=== PATIENT | female | born 1985 | race Caucasian/White ===

== ENCOUNTER 2018-06-13 11:00 | Emergency (ER) | payer OTHER ==
--- NOTE | 2018-06-13 11:56 | ED ---
Abdominal Pain HPI - General Chief Complaint: Abdominal Pain Stated Complaint: LLQ PAIN Time Seen by Provider: 06/13/18 11:39 Source: patient Mode of arrival: ambulatory Limitations: no limitations - History of Present Illness Initial Comments: This a 32-year-old female who denies past medical history with last menstrual period June 06 who presents today for chief complaint of im worried im . Patient states that 5 days ago she felt a pressure sensation in her abdomen, she denies that this was pain but stated it "felt like kicking from a baby". Patient states that she has been smoking and drinking wine here and there was worried she is . She brushed off the symptoms. 3 days ago she noticed her jeans were tighter than normal. She stated that she had periods early on during her last . She did admit to some nausea in the mornings for the past few days, however no vomiting. She stated that a month ago she noticed bilateral breast tenderness, however she brushed off these symptoms as well patient was sore from menstruation. Patient adamantly denies any fever chills, abdominal pain/pelvic pain, urgency urgency, dysuria, vaginal odor, vaginal irritation, vaginal bleeding aside from menstruation, back pain, chest pain, shortness of breath, dizziness, constipation, diarrhea, hematochezia, melena. Patient's vital signs stable upon arrival. - Related Data Home Medications Medication Instructions Recorded Confirmed No Known Home Medications 06/13/18 06/13/18 Allergies Allergy/AdvReac Type Severity Reaction Status Date / Time No Known Allergies Allergy Verified 06/13/18 12:00 Review of Systems ROS Statement: Those systems with pertinent positive or pertinent negative responses have been documented in the HPI. ROS Other: All systems not noted in ROS Statement are negative. Constitutional: Denies: fever, chills, night sweats Respiratory: Denies: cough, dyspnea, wheezes, hemoptysis, stridor Cardiovascular: Denies: chest pain, palpitations Gastrointestinal: Reports: as per HPI, nausea. Denies: abdominal pain, vomiting , diarrhea, constipation, hematemesis, melena, hematochezia Genitourinary: Denies: urgency, dysuria, frequency, hematuria, discharge, abnormal menses, dyspareunia Musculoskeletal: Denies: back pain Skin: Denies: rash, lesions Neurological: Denies: headache, weakness, numbness, paresthesias, confusion Psychiatric: Reports: anxiety (pt states that she has chronic anxiety, no new symptoms) Past Medical History Past Medical History: No Reported History History of Any Multi-Drug Resistant Organisms: None Reported Past Surgical History: Section Past Psychological History: Anxiety, Depression Smoking Status: Current every day smoker Past Alcohol Use History: Occasional Past Drug Use History: None Reported General Exam - General Exam Comments Initial Comments: General: The patient is awake and alert, in no distress, and does not appear acutely ill. Eye: Pupils are equal, round and reactive to light, extra-ocular movements are intact. No nystagmus. There is normal conjunctiva bilaterally. No signs of icterus. Cardiovascular: There is a regular rate and rhythm. No murmur, rub or gallop is appreciated. Respiratory: Lungs are clear to auscultation, respirations are non-labored, breath sounds are equal. No wheezes, stridor, rales, or rhonchi. Gastrointestinal: Soft, non-distended, non-tender abdomen without masses or organomegaly noted. No pain to deep or light palpation over the abdomen/pelvic region including ovaries b/l, uterus, bladder margin, or 4 quadrants/epigastric region. There is no rebound or guarding present. No CVA tenderness. Bowel sounds are unremarkable. No signs of rigidity or peritoneal irritation. Musculoskeletal: Normal ROM, no tenderness. Strength 5/5. Sensation intact. Pulses equal bilaterally 2+. Neurological: A&O x 3. CN II-XII intact, There are no obvious motor or sensory deficits. Coordination appears grossly intact. Speech is normal. Skin: Skin is warm and dry and no rashes or lesions are noted. Psychiatric: Cooperative, appropriate mood & affect, normal judgment. Limitations: no limitations Course Vital Signs 06/13/18 06/13/18 11:30 13:09 Temperature 98.2 F 98.3 F Pulse Rate 82 60 Respiratory 18 16 Rate Blood Pressure 116/82 105/60 O2 Sat by Pulse 100 97 Oximetry Medical Decision Making - Medical Decision Making Because pt stated she took a negative home test, a serum qual HCG was obtained (-). At this time given pt pt has no abdominal pain, changes in defecation or urination. There is no pulsatile mass in the abdomen upon physical examination. VS WNL. I feel the patient is stable for discharge. Further evaluation was discussed with patient, at this time she feels more comfortable seeing primary care physician for follow-up. Patient is instructed to return to emergency department if there was any abdominal pain, change or worsening symptoms, she verbalized agreement. Her main concern was to be evaluated for . Case is discussed in detail Dr. lA. Patient was discharged in stable condition. With follow-up with Dr. Britton. - Lab Data Lab Results 06/13/18 Range/Units 12:08 HCG, Qual Not Detected Disposition Clinical Impression: Normal exam, Negative test Disposition: HOME SELF-CARE Condition: Good Instructions: How to Avoid and Decrease Problems with Gas (DC) Additional Instructions: Please follow-up with family doctor in the next 2 days of symptoms have not improved. Please return to emergency room if the symptoms increase or worsen or for any other concerns. Is patient prescribed a controlled substance at d/c from ED?: No Referrals: None,Stated [Primary Care Provider] - 1-2 days Zenobia Britton MD [STAFF PHYSICIAN] - 1-2 days Time of Disposition: 12:45
[2018-06-13 13:10] VITALS: BP 105/60; PULSE 60; RESP 16; TEMP 98.3
== END 2018-06-13 13:09 | disposition home or self-care (01) ==
LOC: EC 11:00
DX: Z32.02 Encounter for pregnancy test, result negative (principal); F17.200 Nicotine dependence, unspecified, uncomplicated
CPT/HCPCS: 36415; 84703; 99283

== ENCOUNTER → 2019-01-10 | Outpatient (CLI) | payer OTHER ==
--- NOTE | 2019-01-12 18:11 | US ---
EXAMINATION TYPE: Transabdominal DATE OF EXAM: 01/10/2019 4:51 PM COMPARISON: NONE CLINICAL HISTORY: Z36 Confirm dates. Confirm dates, 4, para 3 EXAM PERFORMED: Transabdominal (TA) EXAM MEASUREMENTS: GESTATIONAL AGE / DATING Physician Established: (10 weeks/5 days) EDC: 08/03/2019 Dates by LMP: (10 weeks/5 days) EDC: 08/03/2019 Dates by First Scan: This is 1st scan Dates by Current Scan for: (10 weeks/2 days) EDC: 08/06/2019 MATERNAL ANATOMY Uterus: 10.8 x 5.7 x 7.3cm Right Ovary: 3.6 x 1.9 x 2.7cm Left Ovary: 2.6 x 1.6 x 1.8cm Post CDS / Adnexa: wnl Presence of free fluid: no Presence of corpus luteal cyst: right ovary: 1.9 x 1.7 x 1.6cm Presence of subchorionic bleed: no GESTATION / SURVEY CRL: 3.4cm (10 weeks/2 days) Yolk Sac (normal less than 6mm): 4.8mm Heart Rate: 168 bpm Rhythm: Normal IUP: Viable IUP Nuchal Translucency 10-14wks (normal less than 3mm): 1.4mm Date of LMP: 10/27/2018 Beta HcG (if available): Not available at time of exam Viable single IUP measuring 10 weeks 2 days with heart rate of 168bpm and an estimated delivery date of 08/06/2019. IMPRESSION: Single intrauterine gestation estimated at 10 weeks 2 days gestation based on the current ultrasound crown-rump length. Cardiac activity measures 168 bpm.
== END ==
LOC: RADUSWWP 16:27
PROVIDERS: ATTEND Obstetrics & Gynecology
DX: Z36.9 Encounter for antenatal screening, unspecified (principal); Z3A.10 10 weeks gestation of pregnancy
CPT/HCPCS: 76801; 76813

== ENCOUNTER 2019-07-25 16:03 | Outpatient (CLI) | payer OTHER ==
--- NOTE | 2019-07-28 09:19 | US ---
EXAMINATION TYPE: US OB >= 14 wk fetus DATE OF EXAM: 07/25/2019 COMPARISON: None CLINICAL HISTORY: LEILANI EFW TECHNIQUE: Transabdominal (TA) GESTATIONAL AGE / DATING Physician Established: (38 weeks/5 days) EDC: 08/03/2019 Dates by LMP: (38 weeks/5 days) EDC: 08/03/2019 Dates by First Scan: (10 weeks/2 days) EDC: 08/06/2019 Dates by Current Scan: 35 weeks/6 days) EDC: 08/23/2019 SURVEY IUP: Single PLACENTA: Anterior PREVIA: No Previa LEILANI: 11.5 cm Normal CERVICAL LENGTH (transabdominal: norm > 3.0cm): 3.3 cm BIOMETRY PRESENTATION: Vertex LIE: Longitudinal BPD: 8.64 cm 34 weeks / 6 days HC: 31.05 cm 34 weeks / 5 days AC: 32.21 cm 36 weeks / 1 days FL: 7.28 cm 37 weeks / 2 days ESTIMATED WEIGHT IN GRAMS: 2854 grams ESTIMATED WEIGHT IN LBS/OZ: 65 lbs. oz. WEIGHT PERCENTAGE BASED ON ESTABLISHED DATES: 11% HC/AC: .96cm Normal FL/AC: 23% Normal HEART RATE: 140 bpm RHYTHM: Normal IMPRESSION: IMPRESSION: The weight is 11th percentile compared to old exam of 01/10/2019 that raises the pos sibility of some degree of IUGR. Normal amniotic fluid index. Estimated weight is 2854 g.
== END 2019-07-25 16:45 | disposition home or self-care (01) ==
LOC: FBPOP 16:03
PROVIDERS: ATTEND Obstetrics & Gynecology
DX: O36.5930 Maternal care for other known or suspected poor fetal growth, third trimester, not applicable or unspecified (principal); Z3A.35 35 weeks gestation of pregnancy
CPT/HCPCS: 59025; 76805

== ENCOUNTER 2019-08-11 06:00 | Inpatient (IN) | payer OTHER ==
[2019-08-11] MEDS ORDERED: METHYLERGONOVINE 0.2 MG/ML 1 ML AMP IM PRN (06:51)
[2019-08-11] MEDS ORDERED: OXYTOCIN 10 UNIT/ML 1 ML VIAL IM PRN (06:51)
[2019-08-11] MEDS ORDERED: TERBUTALINE 1 MG/ML VIAL SQ PRN (06:51)
[2019-08-11] MEDS ORDERED: LIDOCAINE 0.5% (PF) 5 MG/ML (50 ML SDV) SQ PRN (06:51)
[2019-08-11] MEDS ORDERED: CARBOPROST TROMETHAMINE 250 MCG/ML 1 ML AMP IM PRN (06:51)
[2019-08-11] MEDS ORDERED: OXYTOCIN 30 UNITS/500 ML NS 30 UNIT in SALINE 1 500ML.BAG IV SCH (07:00)
[2019-08-11] MEDS: LACTATED RINGERS 1,000 ML IV SCH ×2 (07:06→21:32)
[2019-08-11 07:28] VITALS: BMI 23.6
[2019-08-11 07:42] LABS: Basophils % (A) 0 %; Eosinophils % (A) 1 %; HGB 11.8 gm/dL (11.4-16.0); Lymphocytes % (A) 13 %; MCH 30.9 pg (25.0-35.0); MCHC 32.7 g/dL (31.0-37.0); MCV 94.5 fL (80.0-100.0); Mean Platelet Volume 7.3; Monocytes # (A) 0.3 k/uL (0-1.0); Monocytes % (A) 4 %; Neutrophils # (A) 5.7 k/uL (1.3-7.7); Neutrophils % (A) 80 %; Platelet Count 179 k/uL (150-450); RDW 13.2 % (11.5-15.5); WBC 7.1 k/uL (3.8-10.6)
[2019-08-11] MEDS ORDERED: BUTORPHANOL 1 MG/ML 1 ML VIAL IV PRN (08:27)
[2019-08-11] MEDS ORDERED: ZOLPIDEM 5 MG TAB PO PRN (13:54)
[2019-08-11] MEDS ORDERED: diphenhydrAMINE 50 MG/ML 1 ML VIAL IVP PRN ×2 (13:54)
[2019-08-11] MEDS ORDERED: diphenhydrAMINE 50 MG CAP PO PRN (13:54)
[2019-08-11] MEDS ORDERED: WITCH HAZEL 1 EACH MED..PAD TOPICAL PRN (13:54)
[2019-08-11] MEDS ORDERED: BENZOCAINE/MENTHOL SPRAY 1 GM/SPRAY AEROSOL TOPICAL PRN (13:54)
[2019-08-11] MEDS ORDERED: LANOLIN CREAM 5 GM TUBE TOPICAL PRN (13:54)
[2019-08-11] MEDS ORDERED: ACETAMINOPHEN TAB 325 MG TAB PO PRN (13:54)
[2019-08-11] MEDS ORDERED: HYDROCORTISONE 2.5% RECTAL CREAM 30 GM TUBE RECTAL PRN (13:54)
[2019-08-11] MEDS ORDERED: IBUPROFEN 600 MG TAB PO PRN (13:54)
[2019-08-11] MEDS ORDERED: SIMETHICONE 80 MG CHEWABLE PO PRN (13:54)
[2019-08-11] MEDS ORDERED: diphenhydrAMINE 25 MG CAP PO PRN (13:54)
[2019-08-11] MEDS ORDERED: OXYTOCIN 20 UNITS/1000 ML NS 1,000 ML IV SCH (14:00)
--- NOTE | 2019-08-11 17:47 | P.HPOB ---
History of Present Illness H&P Date: 08/11/19 Chief Complaint: Intrauterine at term: Induction of labor Patient is a 34-year-old with twins who is 41 weeks 1 day gestation who arrives for vaginal after section induction of labor. Risk of trial of labor following section were discussed with patient in detail and all questions were answered for her prior to proceeding with the induction. She is 41 weeks gestation and was offered induction prior to this on multiple occasions but declined. Her course otherwise was unremarkable and she is feeling well at this time. We'll plan Pitocin augmentation of labor with artificial rupture membranes been performed and clear fluid noted. She is dilated to 3 cm to 3 cm 80% effaced and -2 station. It is noted that she feels her 1 hour Glucola screen but passed her 3 her Glucola screen as noted weight and NSTs and amniotic fluid index have been normal over the last 2 weeks as we've been monitoring her very closely. All questions were answered for her prior to the initiation of the induction and we anticipate a vaginal delivery. Past Medical History Past Medical History: No Reported History History of Any Multi-Drug Resistant Organisms: None Reported Past Surgical History: Section Additional Past Surgical History / Comment(s): 2014 Past Anesthesia/Blood Transfusion Reactions: No Reported Reaction Past Psychological History: Anxiety, Depression Smoking Status: Former smoker Past Alcohol Use History: Occasional Past Drug Use History: None Reported - Past Family History Father Family Medical History: No Reported History Medications and Allergies Home Medications Medication Instructions Recorded Confirmed Type Pnv No.95/Ferrous Fum/Folic AC 1 tab PO DAILY 07/25/19 08/11/19 History [ Multivitamin Tablet] Allergies Allergy/AdvReac Type Severity Reaction Status Date / Time No Known Allergies Allergy Verified 08/11/19 06:48 Exam Osteopathic Statement: *. No significant issues noted on an osteopathic structural exam other than those noted in the History and Physical/Consult. Vital Signs Temp Pulse Resp BP 08/11/19 15:45 93 17 135/70 08/11/19 15:15 59 L 16 113/72 08/11/19 14:43 75 16 121/72 08/11/19 14:30 75 17 113/71 08/11/19 14:12 67 17 112/59 08/11/19 13:58 79 16 129/75 08/11/19 13:54 98.3 F 73 17 135/61 08/11/19 07:22 17 Intake and Output 08/11/19 08/11/19 08/11/19 06:59 14:59 22:59 Intake Total 600 Balance 600 Intake: Oral 600 Other: # Voids 1 Weight 62.596 kg - OBG Physical Exam Breast: both: normal (no masses) Abdomen: bowel sounds normal, no diffuse tenderness, no bruit present, no guarding noted, no hepatomegaly, no splenomegaly, no mass Vulva: both: normal Vagina: normal moisture, no discharge Cervix: no lesion, no discharge Uterus: normal size, normal contour Adnexa: both: normal Anus/Rectum: normal perianal skin, no rectal mass, no hemorrhoids, heme negative Results Result Diagrams: 08/11/19 07:14
--- NOTE | 2019-08-11 17:48 | P.PROBDLV ---
Vaginal Delivery Note - . Vaginal Delivery Note: Patient progressed to complete and pushing with spontaneous vaginal delivery of a viable female over a first degree perineal laceration. Following delivery of the head a nuchal cord 1 was noted and easily reduced. Once this was accomplished anterior and posterior shoulders were delivered with gentle downward and upward traction followed by the remainder of the baby. Once this was accomplished baby was mouth and nares bulb suctioned and placed on mother's abdomen where the umbilical cord was allowed to pulsate for 30 seconds prior to clamping and cutting. Once this was accomplished nursery personnel was present and assumed care. Placenta was then delivered intact without difficulty and Pitocin was added to the IV. scores were 9 and 9 at one and 5 minutes respectively and the weight was 7 lbs. 0 oz. A first repair immediately laceration was then repaired with 3-0 Vicryl following 1% Xylocaine for analgesia. Both mother and baby are currently stable following delivery.
[2019-08-11 21:19] VITALS: RESP 16
[2019-08-11] MEDS: SENNOSIDES-DOCUSATE SODIUM 1 EACH TAB PO SCH (21:32)
--- NOTE | 2019-08-12 07:33 | P.DS ---
Providers Date of admission: 08/11/19 06:30 Expected date of discharge: 08/12/19 Attending physician: Alexis Galindo Primary care physician: Stated None Hospital Course: Patient is doing very well day 1. She is involuting, voiding and tolerating her diet. She voices no complaints and is requesting discharge to home later today. Vital signs are stable and afebrile. Heart regular, lungs clear, extremities without pain. Abdomen soft is firm and lochia is reported light. Assessment day 1. Plan discharged home follow up with me in 6 weeks. Discharge instructions are otherwise thoroughly reviewed and all quest ions were answered for her prior to her discharge. Patient Condition at Discharge: Good Plan - Discharge Summary New Discharge Prescriptions: No Action Pnv No.95/Ferrous Fum/Folic AC [ Multivitamin Tablet] 1 tab PO DAILY Discharge Medication List Pnv No.95/Ferrous Fum/Folic AC [ Multivitamin Tablet] 1 tab PO DAILY 07/25/19 [History] Follow up Appointment(s)/Referral(s): Alexis Galindo DO [Doctor of Osteopathic Medicine] - 1 Week Activity/Diet/Wound Care/Special Instructions: No heavy lifting, limit stairs and driving, and pelvic rest. If any high temperatures, heavy bleeding, or severe pain call my office Discharge Disposition: HOME SELF-CARE
[2019-08-12 07:57] LABS: Basophils % (A) 0 %; Eosinophils # (A) 0.1 k/uL (0-0.7); Eosinophils % (A) 1 %; HCT 34.2 % (34.0-46.0); HGB 11.1 gm/dL (11.4-16.0); Lymphocytes # (A) 1.1 k/uL (1.0-4.8); Lymphocytes % (A) 11 %; MCH 31.1 pg (25.0-35.0); MCHC 32.5 g/dL (31.0-37.0); MCV 95.6 fL (80.0-100.0); Mean Platelet Volume 7.3; Monocytes # (A) 0.3 k/uL (0-1.0); Monocytes % (A) 3 %; Neutrophils # (A) 8.6 k/uL (1.3-7.7); Neutrophils % (A) 83 %; Platelet Count 188 k/uL (150-450); RBC 3.58 m/uL (3.80-5.40); RDW 13.3 % (11.5-15.5); WBC 10.3 k/uL (3.8-10.6)
[2019-08-12 09:31] VITALS: BP 99/61; PULSE 67; TEMP 98.5
[2019-08-12] MEDS: SENNOSIDES-DOCUSATE SODIUM 1 EACH TAB PO SCH (09:32)
== END 2019-08-12 14:30 | disposition home or self-care (01) | DRG 807 ==
LOC: 4FBP 06:30
PROVIDERS: ADMIT Obstetrics & Gynecology; ATTEND Obstetrics & Gynecology
PROC: 10E0XZZ Delivery of Products of Conception, External Approach (ICD-10-PCS; principal; 2019-08-11)
PROC: 0HQ9XZZ Repair Perineum Skin, External Approach (ICD-10-PCS; principal; 2019-08-11)
DX: O34.219 Maternal care for unspecified type scar from previous cesarean delivery (principal); Z37.0 Single live birth; O99.344 Other mental disorders complicating childbirth; F41.9 Anxiety disorder, unspecified; F32.9 Major depressive disorder, single episode, unspecified; O70.0 First degree perineal laceration during delivery; Z3A.41 41 weeks gestation of pregnancy; Z87.891 Personal history of nicotine dependence
CPT/HCPCS: 85025; 86850; 86900; 86901

== ENCOUNTER → 2025-01-26 | Outpatient (CLI) | payer OTHER ==
--- NOTE | 2025-01-26 15:02 | US ---
EXAMINATION TYPE: US thyroid st tissue head/neck DATE OF EXAM: 01/26/2025 COMPARISON: NONE CLINICAL INDICATION: Female, 39 years old with history of E04.9 NONTOXIC GOITER, UNSPECIFIED; Pt stat es her thyroid is swollen and has been choking on foods TECHNIQUE: Grayscale and color Doppler imaging of the thyroid gland. FINDINGS: GLAND SIZE: Right Lobe: 5.0 x 1.8 x 1.7 cm Overall Parenchyma: heterogeneous Left Lobe: 5.0 x 1.8 x 1.3 cm Overall Parenchyma: heterogeneous Isthmus Thickness: 0.2 cm NODULES RIGHT: # of nodules measured on right: 0 LEFT: # of nodules measured on left: 0 ISTHMUS: # of nodules measured in the isthmus: 0 Bilateral neck scanned, no evidence of lymphadenopathy. IMPRESSION: Diffusely heterogenous mildly enlarged thyroid gland without discrete nodule. [facility], , 01/26/2025 2:59 PM
== END | disposition home or self-care (01) ==
LOC: RADUSWWP 14:29
PROVIDERS: ATTEND Family Medicine
DX: E04.9 Nontoxic goiter, unspecified (principal); E07.89 Other specified disorders of thyroid
CPT/HCPCS: 76536